=== PATIENT | male | born 1990 | race Asian ===

== ENCOUNTER 2022-11-08 21:38 | Emergency (ER) | payer SELFPAY ==
[~2022-11-08] VITALS: Ht 172.7 cm; Wt 105.0 kg
[2022-11-08 21:55] VITALS: BP 147/102
[2022-11-09] MEDS ORDERED: LIDOCAINE HCL 1% 20ML VIAL (Pyxis) INJ INFIL NR (00:45)
[2022-11-09] MEDS ORDERED: TETANUS, DIPHTHERIA, PERTUSSIS VAC/PF 0.5ML (>10YR OLD) IM ONE (01:00)
== END 2022-11-09 03:02 | disposition home or self-care (01) ==
LOC: ER 21:38
DX: S61.213A Laceration without foreign body of left middle finger without damage to nail, initial encounter (principal); W26.8XXA Contact with other sharp object(s), not elsewhere classified, initial encounter; Y93.89 Activity, other specified; Y92.89 Other specified places as the place of occurrence of the external cause; Y99.8 Other external cause status
CPT/HCPCS: 12002; 73130; 90471; 90715; 99283; J3490; Z7610